=== PATIENT | male | born 1990 | race Caucasian/White ===

== ENCOUNTER 2018-06-18 09:44 | Emergency (ER) | payer BC ==
[~2018-06-18] VITALS: Ht 175.3 cm; Wt 79.5 kg
[2018-06-18 09:50] VITALS: Ht 175.3 cm; Wt 79.5 kg
--- NOTE | 2018-06-18 10:10 | ERD ---
ER Documentation Chief Complaint Chief Complaint R100 possible syncope while @ gym, no incontinence or trauma HPI 27-year-old male with no significant prior medical history presents the ED via rescue eminence for evaluation of syncopal episode. ROS All systems reviewed and are negative except as per history of present illness. Medications Home Meds No Active Prescriptions or Reported Meds Allergies Allergies: Coded Allergies: No Known Allergy (Unverified , 06/18/18) PMhx/Soc History of Surgery: Yes (ACL) Anesthesia Reaction: No Hx Neurological Disorder: No Hx Respiratory Disorders: No Hx Cardiac Disorders: No Hx Psychiatric Problems: No Hx Miscellaneous Medical Probl: No Hx Alcohol Use: No Hx Substance Use: Yes (Marijuana) Hx Tobacco Use: No FmHx No sudden cardiac or syncope Physical Exam Vitals Vital Signs Date Temp Pulse Resp B/P (MAP) Pulse Ox O2 O2 Flow FiO2 Time Delivery Rate 06/18/18 77 12 105/68 96 Room Air 12:00 (80) 06/18/18 88 16 114/74 96 Room Air 10:00 (87) 06/18/18 98.0 102 18 141/63 96 09:50 (89) Physical Exam Const: No acute distress Head: Atraumatic Eyes: Normal Conjunctiva ENT: Normal External Ears, Nose and Mouth. Neck: Full range of motion. No meningismus. Resp: Clear to auscultation bilaterally Cardio: Regular rate and rhythm, no murmurs Abd: Soft, non tender, non distended. Normal bowel sounds Skin: No petechiae or rashes Back: No midline or flank tenderness Ext: No cyanosis, or edema Neur: Awake and alert Psych: Normal Mood and Affect Result Diagram: 06/18/18 1007 06/18/18 1007 Results 24 hrs Laboratory Tests Test 06/18/18 10:07 06/18/18 10:26 White Blood Count 6.0 10^3/ul Red Blood Count 5.39 10^6/ul Hemoglobin 16.4 g/dl Hematocrit 48.4 % Mean Corpuscular Volume 89.8 fl Mean Corpuscular Hemoglobin 30.4 pg Mean Corpuscular Hemoglobin Concent 33.9 g/dl Red Cell Distribution Width 12.6 % Platelet Count 315 10^3/UL Mean Platelet Volume 9.0 fl Immature Granulocytes % 0.700 % Neutrophils % 73.2 % Lymphocytes % 17.9 % Monocytes % 7.2 % Eosinophils % 0.3 % Basophils % 0.7 % Nucleated Red Blood Cells % 0.0 /100WBC Immature Granulocytes # 0.040 10^3/ul Neutrophils # 4.4 10^3/ul Lymphocytes # 1.1 10^3/ul Monocytes # 0.4 10^3/ul Eosinophils # 0.0 10^3/ul Basophils # 0.0 10^3/ul Nucleated Red Blood Cells # 0.0 10^3/ul Sodium Level 142 mmol/L Potassium Level 4.2 mmol/L Chloride Level 106 mmol/L Carbon Dioxide Level 18 mmol/L Anion Gap 18 Blood Urea Nitrogen 18 mg/dl Creatinine 0.98 mg/dl Est Glomerular Filtrat Rate mL/min > 60 mL/min Glucose Level 155 mg/dl Calcium Level 10.0 mg/dl Troponin I < 0.012 ng/ml Bedside Glucose 88 mg/dL Procedures/MDM DOCUMENTS REVIEWED: ED nurse, no prior records LAB INTERPRETATION: CBC to evaluate for anemia, leukocytosis and thrombocytopenia is unremarkable. Chemistry reveals no evidence of electrolyte abnormalities, renal insufficiency, hyperbilirubinemia or transaminitis. EKG: Time: 09:48. Sinus rhythm. Ventricular rate 99. Right axis deviation. No acute ST segment elevation or depression. No heart block or ectopy. No acute ST-T wave changes no EKG changes of [place] or arrhythmogenic right ventricular dysplasia. My Interpretation IMAGING: Chest AP Portable: Cardiac silhouette is normal. The costophrenic angles are clear. No effusions or infiltrates. No mediastinal widening or abnormalities of the bony thorax. My interpretation: Normal chest x-ray. PROCEDURE: CT head CLINICAL INDICATION: Syncope TECHNIQUE: Contiguous 2.5 mm axial images were obtained from the vertex to the skull base. No intravenous contrast was administered. The calculated dose length product (DLP) = 634.23 mGy-cm. The CTDlvol = 38.70 mGy. One or more of the following dose reduction techniques were used: Automated exposure control, adjustment of the mA and or KV according to patient size, or use of iterative reconstruction technique. DICOM images are available. COMPARISON: None FINDINGS: There is no evidence of acute intracranial hemorrhage or acute territorial infarct. No mass or mass effect is seen on this noncontrast study. The ventricles and cisterns are normal in size and configuration. The pierson-white matter differentiation is within normal limits. The visualized paranasal sinuses are normally aerated. The bony calvarium is unremarkable IMPRESSION: Unremarkable unenhanced CT of the brain RPTAT: HH .Gm Diaz MD, Date Time Electronically viewed and signed by .Gm Diaz MD, on 06/18/2018 13:57 .W/ ED COURSE: [] REEXAMINATION/REEVALUATION: Time: 13:50. Doing well. Asymptomatic. MEDICAL DECISION MAKIN-year-old male with no significant prior medical history presents the ED via rescue eminence for evaluation of syncopal episode. Stable for discharge with precautionary instructions and outpatient follow-up as counseled. Counseled patient[ and family] regarding diagnostic workup, diagnosis and need for followup. Understands to return to ED if symptoms recur, worsen or any other concerns. Departure Diagnosis: Primary Impression: Syncope Syncope type: unspecified Qualified Codes: R55 - Syncope and collapse Condition: Stable BELTRAN CAMPBELL MD June 18, 2018 10:10
[2018-06-18 14:30] VITALS: BP 107/68; PULSE 64; RESP 20
== END 2018-06-18 14:30 | disposition home or self-care (01) ==
LOC: E/R 09:44
DX: R55 Syncope and collapse (principal)
CPT/HCPCS: 36415; 70450; 71045; 80048; 82962; 84484; 85025; 93005